=== PATIENT | female | born 1995 | race Caucasian/White ===

== ENCOUNTER 2018-04-13 01:12 | Emergency (ER) | payer BC ==
[~2018-04-13] VITALS: Ht 160 cm; Wt 125.0 kg
[2018-04-13 01:19] VITALS: BP 142/77; TEMP 98.3
[2018-04-13] MEDS ORDERED: TRINESSA 281 TAB PO (01:47)
[2018-04-13] MEDS ORDERED: CIPRODEX OT (02:22)
[2018-04-13 02:31] VITALS: PULSE 75
== END 2018-04-13 02:30 | disposition home or self-care (01) ==
LOC: COL.ER 01:12
DX: T16.2XXA Foreign body in left ear, initial encounter (principal); E66.9 Obesity, unspecified; Z90.49 Acquired absence of other specified parts of digestive tract